=== PATIENT | male | born 1975 | race Two or more races ===

== ENCOUNTER 2020-01-07 10:00 | Day surgery (SDC) | payer BC ==
--- NOTE | 2020-01-05 23:45 | Pre-op HX & Phy Repo 2 SIG ---
DATE OF ADMISSION: 01/07/2020 Surgery scheduled for 01/07/2020. PREOPERATIVE DIAGNOSES: Proliferative diabetic retinopathy, traction retinal detachment, left eye. HISTORY OF PRESENT ILLNESS: Patient is a very pleasant 44-year-old gentleman who I initially met on 11/01/2019. He has a history of proliferative diabetic retinopathy and decreased vision. I recommended surgery at that time. He returned on 01/03/2020. His visual acuity was 20/160 on the right, 20/125, pinhole 20/100, left eye. He is noted to have increased traction retinal detachment in his right eye. He is now being admitted for pars plana vitrectomy with membrane peel, endolaser, right eye. PAST MEDICAL HISTORY: Remarkable for type 2 diabetes, hypertension, hyperlipidemia, and heart disease. MEDICATIONS: Metformin, chlorthalidone, clonidine, atorvastatin, losartan . ALLERGIES: No known drug allergies. PHYSICAL EXAMINATION: Visual acuity 20/160 in the right eye, 20/125, pin hole 20/100, left eye. demonstrated the conjunctiva is quiet. The cornea is clear. The anterior chamber is quiet, there is 1+ nuclear sclerosis examination, right, demonstrates clear media. The cup-to-disc ratio is 0.2 dot and blot and this is in macula and epiretinal membrane dot and blot hemorrhages in the macula with an epiretinal membrane traction present. examination of the right eye demonstrates traction retinal detachment, predominantly inferotemporal. IMPRESSION: Severe proliferative diabetic retinopathy, both eyes. Traction retinal detachment, both eyes. Epiretinal membrane, both eyes. PLAN: I discussed my findings with the patient. He does require surgery in both eyes. So, I recommended vitrectomy with membrane peel and endolaser, right eye. Complications including loss of vision and loss of eye were discussed. He understands and agreed to the surgery. Derick Ortega M.D. DR: HARDEEP JOB#: [id number] CC:
[2020-01-07] VITALS (7 sets, daily range): BP systolic 130–147; BP diastolic 60–90
[~2020-01-07] VITALS: Ht 193 cm; Wt 125.6 kg
[~2020-01-07 10:00] MED LIST: AMLODIPINE BESYL5 MG ORAL; ATORVASTATIN CA40 MG ORAL; CATAPRES0.1 MG ORAL; CHLORTHALIDONE25 MG ORAL; LOSARTAN POTASS25 MG ORAL; LOSARTAN POTASS50 MG ORAL; METFORMIN HCL1000 M1 ORAL; Vigamox Opth Soln 3ml RIGHT EYE SCH
[2020-01-07] MEDS ORDERED: Tropicamide 1% Opth 15ml Soln ONE (10:25)
[2020-01-07] MEDS ORDERED: Vigamox Opth Soln 3ml ONE (10:25)
[2020-01-07] MEDS ORDERED: Phenylephrine 2.5% Op 2ml Soln ONE (10:25)
[2020-01-07] MEDS ORDERED: Cyclopentolate 1% Opth Sol 2ml ONE (10:25)
[2020-01-07] MEDS: Phenylephrine 2.5% Op 2ml Soln RIGHT EYE SCH ×3 (10:40→11:02)
[2020-01-07] MEDS: Cyclopentolate 1% Opth Sol 2ml RIGHT EYE SCH ×3 (10:40→11:03)
[2020-01-07] MEDS: Tropicamide 1% Opth 15ml Soln RIGHT EYE SCH ×3 (10:40→11:02)
[2020-01-07] MEDS ORDERED: Lidocaine 4% Amp 5ml ONE (12:26)
[2020-01-07] MEDS ORDERED: Betamethasone Sod Phos/Acetate 6 MG/ML INJ ONE (12:26)
[2020-01-07] MEDS ORDERED: EPINEPHrine 1mg/1ml Amp ONE (12:26)
[2020-01-07] MEDS ORDERED: Goniotaire 2.5% Opth Soln - 15ml ONE (12:26)
[2020-01-07] MEDS ORDERED: Bupivacaine 0.75% 30ml vial INJ ONE (12:27)
[2020-01-07] MEDS ORDERED: BSS 500ml btl ONE ×2 (12:27→12:37)
[2020-01-07] MEDS ORDERED: Tetracaine 0.5% Opth 4ml Soln ONE (12:27)
[2020-01-07] MEDS ORDERED: BSS 15ml BTL ONE (12:27)
[2020-01-07] MEDS ORDERED: Hyaluronidase 150 units/ml vial ONE (12:28)
[2020-01-07] MEDS ORDERED: Sterile Water Irrig 1000ml IRRIG ONE (12:30)
[2020-01-07] MEDS ORDERED: fentaNYL 100 mcg/2 mL IV ONE (12:30)
[2020-01-07] MEDS ORDERED: Lidocaine 1% MPF 10mg/ml 5ml ONE (12:30)
[2020-01-07] MEDS ORDERED: NS Irrig 1000ml ONE (12:30)
[2020-01-07] MEDS ORDERED: LR 1000ml ONE (12:30)
[2020-01-07] MEDS ORDERED: Povidone-Iodine 5% opth solution ONE (12:46)
--- NOTE | 2020-01-07 13:08 | Pre-Procedure Note/Attestation ---
Pre-Procedure Note/Attestation Complete Prior to Procedure Planned Procedure: right Procedure Narrative: pars plana vitrectomy with membrane peel and endolaser OD Indications for Procedure Pre-Operative Diagnosis: Proliferative diabetic retinopathy, vitreous hemorrhage and traction retinal detachment OD Attestation I attest that I discussed the nature of the procedure; its benefits; risks and complications; and alternatives (and the risks and benefits of such alternatives ), prior to the procedure, with the patient (or the patient's legal traveling sales representative). I attest that, if there was a reasonable possibility of needing a blood transfusion, the patient (or the patient's legal traveling sales representative) was given the [facility] standardized written summary, pursuant to the [place] Blood Safety Act ([place] Health and Safety Code # 1645, as amended). I attest that I re-evaluated the patient just prior to the surgery and that there has been no change in the patient's H&P, except as documented below: Derick Ortega MD Jan 07, 2020 13:08
--- NOTE | 2020-01-07 13:49 | Immediate Post-Op Evaluation ---
Immediate Post-Op Evalulation Immediate Post-Op Evalulation Procedure: right eye vitrectomy Date of Evaluation: Jan 07, 2020 Time of Evaluation: 13:48 IV Fluids: 500 Blood Pressure Systolic: 130 Blood Pressure Diastolic: 60 Pulse Rate: 81 Respiratory Rate: 14 O2 Sat by Pulse Oximetry: 100 Temperature (Fahrenheit): 98.2 Nausea: No Vomiting: No Patient Status: awake, reacts, patent Hydration Status: adequate Drug: ancef Given Within 1 Hr of Incision: Yes Time Given: 12:45 Candie Gonsalez CRNA Jan 07, 2020 13:49
--- NOTE | 2020-01-07 13:51 | Anethesia Preoperative Eval ---
Anesthesia Pre-op PMH/ROS General Date of Evaluation: Jan 07, 2020 Time of Evaluation: 12:30 Anesthesiologist: diaz ASA Score: ASA 3 Mallampati Score Class I : Soft palate, uvula, fauces, pillars visible Class II: Soft palate, uvula, fauces visible Class III: Soft palate, base of uvula visible Class IV: Only hard plate visible Mallampati Classification: Class II Surgeon: kourtney Diagnosis: right eye pain Surgical Procedure: right eye vitrectomy Anesthesia History: none Family History: no anesthesia problems Allergies: Coded Allergies: No Known Allergies (Unverified , 01/05/20) Medications: see eMAR Patient NPO?: Yes NPO Date: Jan 07, 2020 NPO Time: 00:01 Past Medical History Cardiovascular: Reports: HTN, CAD Pulmonary: Denies: asthma, COPD, ABBY, other Gastrointestinal/Genitourinary: Reports: CRI; Denies: GERD, ESRD, other Neurologic/Psychiatric: Denies: dementia, CVA, depression/anxiety, TIA, other Endocrine: Reports: DM; Denies: hypothyroidism, steroids, other HEENT: Denies: cataract (L), cataract (R), glaucoma, MAKAH (L), MAKAH (R), other Hematology/Immune: Denies: anemia, DVT, bleeding disorder, other Musculoskeletal/Integumentary: Denies: OA, RA, DJD, DDD, edema, other Anesthesia Pre-op Phys. Exam Physician Exam Last Vital Signs Date Time Temp Pulse Resp B/P (MAP) Pulse Ox O2 Delivery O2 Flow Rate FiO2 01/07/20 13:43 98.2 81 14 130/60 99 Room Air Constitutional: NAD Neurologic: CN 2-12 intact Cardiovascular: RRR Respiratory: CTA Gastrointestinal: S/NT/ND Airway Exam Mallampati Classification 2 Mallampati Score: Class II MO: full Neck: thick ROM: full Dentures: no upper, no lower Anesthesia Pre-op A/P Studies Pre-op Studies: EKG - sr Risk Assessment & Plan Plan: mac Status Change Before Surgery: No Pre-Antibiotics Drug: declined Candie Gonsalez CRNA Jan 07, 2020 13:51
--- NOTE | 2020-01-07 14:47 | Brief Operative Note ---
Immediate Post Operative Note Operative Note Pre-op Diagnosis: Proliferative diabetic retinopathy, vitreous hemorrhage and traction retinal detachment OD Procedure: Pars plana vitrectomy with membrane peel and endolaser OD Post-op Diagnosis: Same Post-op Diagnosis: same as pre-op Surgeon: Shannon Anesthesia: local, MAC Specimen: none Complications: none Condition: stable Fluids: 0 Estimated Blood Loss: none Drains: none Implant(s) used?: No Derick Ortega MD Jan 07, 2020 14:47
--- NOTE | 2020-01-10 12:30 | Operative Note - Dictated ---
DATE OF OPERATION: 01/07/2020 PREOPERATIVE DIAGNOSES: Proliferative diabetic retinopathy, vitreous hemorrhage traction, retinal detachment, right eye. POSTOPERATIVE DIAGNOSES: Proliferative diabetic retinopathy, vitreous hemorrhage traction, retinal detachment, right eye. PROCEDURE: 1. Pars plana vitrectomy with membrane peel, endolaser, right eye. 2. Air injection, right eye. SURGEON: Derick Ortega MD PAID SEARCH MARKETING ANALYST: Unassisted. ANESTHESIA: Local (4% lidocaine and 0.75% bupivacaine via retrobulbar injection). COMPLICATIONS: None. PROCEDURE IN DETAIL: After informed consent was obtained, clearance from Anesthesia, identification by Dr. Ortega, the patient was brought to the operating room where he received his anesthetic injections and his right eye was prepped and draped in usual sterile ophthalmic fashion. A wire lid speculum was placed in the conjunctiva fornices and a 3 port 23-gauge vitrectomy was created in a pseudophakic patient. Trocars and cannulas placed 4 mm posterior to the surgical limbus superotemporally, superonasally, and inferotemporally. Once the infusion cannula was noted to be inside the eye, infusion was turned on. The cortical vitreous was then removed from the posterior surface of the lens, from the surface of the retina in addition to vitreous base. The posterior hyaloid was noted to be firmly attached along the surface of the retina. It was engaged using suctioning the ocutome. Once this was accomplished, the posterior hyaloid was segmented around the arcade. The optic discs had preretinal fibrosis, which was engaged using intraocular forceps, which was engaged with the forceps and elevated off the surface of the retina. At this point, first additional vitreous base dissection was performed. Blood was then removed from the surface of the retina using the ocutome. At this point, the endolaser was applied in ablation pattern. Approximately 1000 spots were applied using power of 400 mW and an exposure time of 0.05 seconds. A good uptake was noted the application. The eye was then examined using scleral depression. No holes or tears were noted in the periphery. Fluid-air exchange was performed. The trocar and cannula were then removed. The wounds were noted to be watertight. Subconjunctival cefazolin, Decadron, and topical atropine drops were placed. The eye was was then patched and shielded. The patient left the operating room in stable condition. Derick Ortega M.D. DR: HARDEEP JOB#: [id number] CC:
[2020-01-13 07:24] VITALS: BP 142/86
--- NOTE | 2020-01-13 07:24 | 48 Hour Post Anesthesia Eval ---
Post Anesthesia Evaluation Procedure: right eye vitrectomy Date of Evaluation: Jan 13, 2020 Time of Evaluation: 07:24 Blood Pressure Systolic: 142 0: 86 Pulse Rate: 74 Respiratory Rate: 14 Temperature (Fahrenheit): 97.0 O2 Sat by Pulse Oximetry: 98 Airway: patent Nausea: No Vomiting: No Hydration Status: adequate Mental Status/LOC: patient returned to baseline Post-Anesthesia Complications: none Follow-up care needed: N/A Candie Gonsalez CRNA Jan 13, 2020 07:24
== END 2020-01-07 15:00 | disposition home or self-care (01) ==
LOC: SUR 10:00
DX: E11.3533 Type 2 diabetes mellitus with proliferative diabetic retinopathy with traction retinal detachment not involving the macula, bilateral (principal); E78.5 Hyperlipidemia, unspecified; I11.9 Hypertensive heart disease without heart failure; I51.9 Heart disease, unspecified; Z79.84 Long term (current) use of oral hypoglycemic drugs; Z88.8 Allergy status to other drugs, medicaments and biological substances; Z79.899 Other long term (current) drug therapy
CPT/HCPCS: 67040; 94003; J0171; J0690; J1100; J2250; J2704; J3010; J3470; J3490; J7120; 94150

== ENCOUNTER 2020-02-09 10:03 | Day surgery (SDC) | payer BC ==
[2020-02-09] VITALS (7 sets, daily range): BP systolic 139–152; BP diastolic 80–94
[~2020-02-09] VITALS: Ht 193 cm; Wt 125.6 kg
--- NOTE | 2020-02-09 02:14 | Pre-op HX & Phy Repo 2 SIG ---
DATE OF ADMISSION: 02/09/2020 PREOPERATIVE DIAGNOSES: Proliferative diabetic retinopathy with vitreous hemorrhage and traction retinal detachment of left eye. HISTORY: The patient is a pleasant 44-year-old gentleman who I initially evaluated on November 01, 2019. At that time, he was noted to have proliferative diabetic retinopathy and traction retinal detachment for a year. He had a history of decreased vision in both eyes, recurring over several months. He underwent vitrectomy with membrane peel and endolaser at [facility] on January 07, 2020, to his right eye. Preoperative vision was 20/160. By February 01, his vision had improved to 20/60 and pinhole 20/40 in the right eye. The left eye has been getting progressively worse. On November 01, 2019, his vision in the left eye was 20/80 and pinhole was 20/60, and by February 01, it had worsened to 20/125. He is now being admitted for pars plana vitrectomy with membrane peel and endolaser to his left eye. PAST MEDICAL HISTORY: Remarkable for type 2 diabetes diagnosed in 2019. He also has a history of systemic hypertension, hyperlipidemia, and undetermined heart disease. PAST SURGICAL HISTORY: Unremarkable except for the eye surgery. SYSTEMIC MEDICATIONS: Include atorvastatin, chlorthalidone, clonidine, losartan, and metformin. ALLERGIES: He has no known drug allergies. FAMILY OCULAR HISTORY: Unremarkable. FAMILY HISTORY: He does have a family history of diabetes, hypertension, and stroke in his father. SOCIAL HISTORY: Unremarkable. Specifically, he denies tobacco abuse. He uses alcohol only rarely. He denies substance abuse. REVIEW OF SYSTEMS: A 10-point review of systems was unremarkable except for the decreased vision. PHYSICAL EXAMINATION: His visual acuity was 20/60 and pinhole 20/40 in the right eye and 20/125 in the left eye. Intra-ocular pressure was 14 mmHg in the right eye and 13 mmHg in the left eye. External examination demonstrated normal lids and adnexa. Anterior segment examination demonstrated the conjunctivae are quiet. The corneas were clear. The anterior chambers were quiet. There was no iris neovascularization noted in either eye. There was 1+ nuclear sclerosis to lenses in both eyes. Dilated vitreoretinal examination in the right eye demonstrated clear media with normal postoperative . The cup-to-disc ratio was 0.2. There was mild epiretinal membrane with some mild macular edema. The retina was flat in the periphery with . In the left eye, media is clear. The cup-to-disc ratio was 0.2. There were some scattered dot and blot hemorrhages in the macula with macular edema and a large epiretinal membrane. Examination of retinal periphery demonstrated traction retinal detachment along . IMPRESSION: Proliferative diabetic retinopathy with traction and retinal detachment in the left eye. PLAN: I discussed my findings with the patient. After detailed discussion of risks, benefits, alternatives including loss of vision, loss of eye, he does agree to proceed with the surgery. Derick Ortega M.D. DR: Jeremiah JOB#: [id number] CC:
--- NOTE | 2020-02-09 09:39 | Pre-Procedure Note/Attestation ---
Pre-Procedure Note/Attestation Complete Prior to Procedure Planned Procedure: left Procedure Narrative: Pars plana vitrectomy with membrane peel and endolaser OS Indications for Procedure Pre-Operative Diagnosis: Proliferative diabetic retinopathy with vitreous hemorrhage and traction retinal detachment OS Attestation I attest that I discussed the nature of the procedure; its benefits; risks and complications; and alternatives (and the risks and benefits of such alternatives ), prior to the procedure, with the patient (or the patient's legal customer sales representative). I attest that, if there was a reasonable possibility of needing a blood transfusion, the patient (or the patient's legal customer sales representative) was given the [facility] standardized written summary, pursuant to the [place] Blood Safety Act ([place] Health and Safety Code # 1645, as amended). I attest that I re-evaluated the patient just prior to the surgery and that there has been no change in the patient's H&P, except as documented below: Derick Ortega MD Feb 09, 2020 09:39
[~2020-02-09 10:03] MED LIST changes: +Vigamox Opth Soln 3ml LEFT EYE SCH; -Vigamox Opth Soln 3ml RIGHT EYE SCH
[2020-02-09] MEDS ORDERED: Tropicamide 1% Opth 15ml Soln ONE (10:25)
[2020-02-09] MEDS ORDERED: Cyclopentolate 1% Opth Sol 2ml ONE (10:25)
[2020-02-09] MEDS ORDERED: Vigamox Opth Soln 3ml ONE (10:25)
[2020-02-09] MEDS ORDERED: Phenylephrine 2.5% Op 2ml Soln ONE (10:25)
[2020-02-09] MEDS ORDERED: Sterile Water Irrig 1000ml IRRIG ONE ×2 (10:30→12:00)
[2020-02-09] MEDS ORDERED: NS Irrig 1000ml ONE ×2 (10:30→12:00)
[2020-02-09] MEDS ORDERED: NS 275ml ONE (10:30)
[2020-02-09] MEDS ORDERED: LR 1000ml ONE ×2 (10:30→12:00)
[2020-02-09] MEDS ORDERED: Lidocaine 1% MPF 10mg/ml 5ml ONE (10:30)
[2020-02-09] MEDS: Tropicamide 1% Opth 15ml Soln LEFT EYE SCH ×3 (10:31→10:48)
[2020-02-09] MEDS: Cyclopentolate 1% Opth Sol 2ml LEFT EYE SCH ×3 (10:31→10:48)
[2020-02-09] MEDS: Phenylephrine 2.5% Op 2ml Soln LEFT EYE SCH ×3 (10:31→10:48)
[2020-02-09] MEDS ORDERED: Lidocaine 4% Amp 5ml ONE (11:27)
[2020-02-09] MEDS ORDERED: EPINEPHrine 1mg/1ml Amp ONE (11:27)
[2020-02-09] MEDS ORDERED: Goniotaire 2.5% Opth Soln - 15ml ONE (11:28)
[2020-02-09] MEDS ORDERED: BSS 500ml btl ONE ×2 (11:28→11:30)
[2020-02-09] MEDS ORDERED: BSS 15ml BTL ONE (11:28)
[2020-02-09] MEDS ORDERED: Tetracaine 0.5% Opth 4ml Soln ONE (11:28)
[2020-02-09] MEDS ORDERED: Bupivacaine 0.75% 30ml vial INJ ONE (11:29)
[2020-02-09] MEDS ORDERED: Hyaluronidase 150 units/ml vial ONE (11:29)
[2020-02-09] MEDS ORDERED: Povidone-Iodine 5% opth solution ONE (11:30)
[2020-02-09] MEDS ORDERED: Dextrose 5%/Lactated Ringer's 1,000 ML IV ONE (11:38)
[2020-02-09] MEDS ORDERED: Indocyanine Green 25mg Inj INJ ONE (12:00)
[2020-02-09] MEDS ORDERED: Midazolam 2mg/2ml Inj ONE (12:07)
[2020-02-09] MEDS ORDERED: fentaNYL 100 mcg/2 mL IV ONE (12:07)
[2020-02-09] MEDS ORDERED: LR 1000ml 1,000 ML IVLG SCH (12:48)
--- NOTE | 2020-02-09 12:48 | Anethesia Preoperative Eval ---
Anesthesia Pre-op PMH/ROS General Date of Evaluation: Feb 09, 2020 Time of Evaluation: 12:02 Anesthesiologist: Chetna ASA Score: ASA 3 Mallampati Score Class I : Soft palate, uvula, fauces, pillars visible Class II: Soft palate, uvula, fauces visible Class III: Soft palate, base of uvula visible Class IV: Only hard plate visible Mallampati Classification: Class II Surgeon: Shannon Diagnosis: Diabetic retinopathy Surgical Procedure: PPV Anesthesia History: none Family History: no anesthesia problems Allergies: Coded Allergies: No Known Allergies (Unverified , 02/09/20) Medications: see eMAR Patient NPO?: Yes Past Medical History Cardiovascular: Reports: HTN - stable on meds; Denies: CAD, [place], valve dz, arrhythmia, other Pulmonary: Denies: asthma, COPD, ABBY, other Gastrointestinal/Genitourinary: Reports: GERD, CRI - Elevated Cr.; Denies: ESRD, other Neurologic/Psychiatric: Denies: dementia, CVA, depression/anxiety, TIA, other Endocrine: Reports: DM - on pills poorly controled; Denies: hypothyroidism, steroids, other HEENT: Reports: other - retinopathy; Denies: cataract (L), cataract (R), glaucoma, [place] (L), [place] (R) Hematology/Immune: Reports: anemia - of chronic d-s; Denies: DVT, bleeding disorder, other Musculoskeletal/Integumentary: Denies: OA, RA, DJD, DDD, edema, other Other: obesity PMH Narrative: as above PSxH Narrative: Eye Sx Anesthesia Pre-op Phys. Exam Physician Exam Last Vital Signs Date Time Temp Pulse Resp B/P (MAP) Pulse Ox O2 Delivery O2 Flow Rate FiO2 02/09/20 10:41 Room Air 02/09/20 10:33 96.2 83 18 142/94 99 Constitutional: NAD Neurologic: CN 2-12 intact Cardiovascular: RRR, no M/R/G Respiratory: CTA Airway Exam Mallampati Score: Class II MO: full Neck: flexible ROM: limited Teeth: intact Dentures: no upper, no lower Anesthesia Pre-op A/P Labs see chart Studies Pre-op Studies: EKG - SR Risk Assessment & Plan Assessment: ASA 3 Plan: Mac with retrobulbar block Status Change Before Surgery: No Patrick Basilio MD Feb 09, 2020 12:48
[2020-02-09] MEDS ORDERED: fentaNYL 100 mcg/2 mL IV PRN (13:00)
--- NOTE | 2020-02-09 13:20 | Immediate Post-Op Evaluation ---
Immediate Post-Op Evalulation Immediate Post-Op Evalulation Procedure: L eye PPV, membraine peel, laser treatment, fluid to gas exchange Date of Evaluation: Feb 09, 2020 Time of Evaluation: 13:19 IV Fluids: 300 Blood Products: none Estimated Blood Loss: min Urinary Output: none Blood Pressure Systolic: 147 Blood Pressure Diastolic: 87 Pulse Rate: 74 Respiratory Rate: 20 O2 Sat by Pulse Oximetry: 99 Temperature (Fahrenheit): 97.8 Pain Score (1-10): 1 Nausea: No Vomiting: No Complications none Patient Status: awake, patent, none Hydration Status: adequate Patrick Basilio MD Feb 09, 2020 13:20
--- NOTE | 2020-02-09 13:44 | Brief Operative Note ---
Immediate Post Operative Note Operative Note Pre-op Diagnosis: Proliferative diabetic retinopathy with vitreous hemorrhage and traction retinal detachment OS Procedure: Pars plana vitrectomy with membrane peel, endolaser and gas injection OS Post-op Diagnosis: Same as pre op Post-op Diagnosis: same as pre-op Surgeon: Derick Valerio Anesthesia: local, MAC Specimen: none Complications: none Condition: stable Fluids: 0 Estimated Blood Loss: none Drains: none Packin Tourniquet time: 0 Implant(s) used?: No Derick Ortega MD Feb 09, 2020 13:44
--- NOTE | 2020-02-09 15:14 | Operative Note - Dictated ---
DATE OF OPERATION: 02/09/2020 PREOPERATIVE DIAGNOSES: Proliferative diabetic retinopathy, vitreous hemorrhage, and traction retinal detachment, left eye. POSTOPERATIVE DIAGNOSES: Proliferative diabetic retinopathy, vitreous hemorrhage, and traction retinal detachment, left eye. PROCEDURE: Pars plana vitrectomy with membrane peel, endolaser, and gas injection, left eye. SURGEON: Derick Ortega MD. ANESTHESIA: Local (4% lidocaine and 0.75% bupivacaine via retrobulbar injection). COMPLICATIONS: None. PROCEDURE IN DETAIL: After informed consent was obtained, clearance from Anesthesia, identification by Dr. Ortega, the patient was brought to the operating room where he received his anesthetic injection and his left eye was prepped and draped in usual sterile ophthalmic fashion. A wire lid speculum was placed in the conjunctival fornices and 3 port 23-gauge vitrectomy was created in a pseudophakic patient. Trocars and cannulas placed 4 mm posterior to surgical limbus supratemporally, supranasally, and inferotemporally. Once the infusion cannula was noted to be inside the eye, infusion was turned on. The cortical vitreous was then removed from the posterior surface of the lens from the surface of the retina in addition to to the vitreous base. There was a large preretinal membrane present extending over the optic disc along both the superior, inferior, temporal and nasal arcades. This is segmented by initially grasping the membrane with forceps over the optic disc and then segmenting using the osteotome was also delaminated using intraocular forceps. After the membrane dissection was performed, there was some remnants of posterior hyaloid that was present just above the superotemporal arcade that was left intact due to the fact that the surgical objectives were accomplished and a small break was noted just inferior to the inferonasal and inferotemporal arcade. Another small break was noted just nasal to the optic disc. Once this was accomplished, a fluid air exchange was performed. The retina flattened nicely. Endolaser was then applied in ablation pattern. Approximately 1000 spots were applied using power of 400 mW, and exposure time of 0.05 seconds. A good uptake was noted to pass through all the application. After the endolaser, the air was then exchanged with an 18% mixture of SF6 gas. The trocar and cannulas were then removed. The wounds were noted to be airtight. Subconjunctival cefazolin, Decadron, and topical atropine drops were placed in the eye, which was patched and shielded and the patient left the operating room in stable condition. Derick Ortega M.D. DR: CINTIA JOB#: [id number] CC:
== END 2020-02-09 14:15 | disposition home or self-care (01) ==
LOC: SUR 10:03
DX: E11.3532 Type 2 diabetes mellitus with proliferative diabetic retinopathy with traction retinal detachment not involving the macula, left eye (principal); H43.12 Vitreous hemorrhage, left eye; E78.5 Hyperlipidemia, unspecified; E66.9 Obesity, unspecified; I12.9 Hypertensive chronic kidney disease with stage 1 through stage 4 chronic kidney disease, or unspecified chronic kidney disease; E11.22 Type 2 diabetes mellitus with diabetic chronic kidney disease; N18.9 Chronic kidney disease, unspecified; Z79.899 Other long term (current) drug therapy; Z79.84 Long term (current) use of oral hypoglycemic drugs; Z68.33 Body mass index [BMI] 33.0-33.9, adult
CPT/HCPCS: 67039; 67041; 94003; J0171; J0690; J1100; J2250; J2704; J3010; J3470; J3490; J7050; J7120; 94150